=== PATIENT | male | born 1990 | race Caucasian/White ===

== ENCOUNTER 2024-07-10 19:24 | Emergency (ER) | payer OTHER ==
[~2024-07-10] VITALS: Ht 167.6 cm; Wt 118.2 kg
[2024-07-10 19:33] VITALS: TEMP 98.3
[2024-07-10 20:28] LABS: BASOPHILS % (AUTO) 0.6 % (0.0-2.0); EOSINOPHILS % (AUTO) 0.7 % (1.0-6.0); HEMATOCRIT 44.1 % (41-53); HEMOGLOBIN 14.6 g/dL (13.5-17.5); LYMPHOCYTES # (AUTO) 2.5 K/uL (1.0-4.8); MEAN CORPUSCULAR HEMOGLOBIN 29.5 pg (26.0-34.0); MEAN CORPUSCULAR HGB CONC 33.2 G/dL (31.0-37.0); MEAN CORPUSCULAR VOLUME 89 fL (80-100); MONOCYTES # (AUTO) 0.9 K/uL (0.1-1.0); MONOCYTES % (AUTO) 6.4 % (2.0-9.0); NEUTROPHILS # (AUTO) 10.3 K/uL (1.8-7.7); NEUTROPHILS % (AUTO) 74.3 % (40.0-70.0); PLATELET COUNT (AUTO) 216 K/uL (150-450); RED BLOOD CELL COUNT(AUTO) 4.96 MIL/uL (4.50-5.90); RED CELL DISTRIBUTION WIDTH 13.4 % (11.5-14.5); WHITE BLOOD COUNT (AUTO) 13.8 K/uL (4.5-11.0)
[2024-07-10 20:37] LABS: ANION GAP 12 mmol/L (8-16); CARBON DIOXIDE 24 mmol/L (22-29); CHLORIDE 104 mmol/L (98-107); CREATININE 0.84 mg/dL (0.60-1.30); GLOMERULAR FILTR. RATE CALC > 60 mL/min (>60); GLUCOSE,RANDOM 107 mg/dL (70-110); POTASSIUM 4.3 mmol/L (3.5-5.1); SODIUM SERUM 140 mmol/L (136-145); UREA NITROGEN, BLOOD 15 mg/dL (7-18)
[2024-07-10 20:38] LABS: CALCIUM, TOTAL 9.1 mg/dL (8.8-10.5)
[2024-07-10 20:41] LABS: ALBUMIN 3.6 g/dL (3.4-5.0); BILIRUBIN,DIRECT 0.1 mg/dL (0.00-0.20); BILIRUBIN,TOTAL 0.4 mg/dL (0.1-1.0); TOTAL PROTEIN, SERUM 7.1 g/dL (6.4-8.2)
[2024-07-10] MEDS: AMOX TR/POT CLAV 875 MG/125 MG TABLET PO ONE (23:17)
[2024-07-10] MEDS: IBUPROFEN 600 MG TABLET PO ONE (23:17)
[2024-07-11 02:05] VITALS: BP 133/59; PULSE 71; RESP 15; O2SAT 97
== END 2024-07-11 02:04 ==
LOC: EMS 19:24 → EDBD 19:24 → EMS 07-11 02:04
DX: L05.01 Pilonidal cyst with abscess (principal)
CPT/HCPCS: 80048; 80076; 85025; 99284